=== PATIENT | female | born 1960 | race Caucasian/White ===

== ENCOUNTER 2024-06-13 18:28 | Emergency (ER) | payer OTHER, BC, SELFPAY ==
[2024-06-13 18:34] VITALS: BP 170/74; PULSE 79; RESP 20; TEMP 36.1; O2SAT 100; BMI 34.4
== END 2024-06-13 19:59 | disposition left against medical advice (07) ==
DX: Z53.21 Procedure and treatment not carried out due to patient leaving prior to being seen by health care provider (principal)

== ENCOUNTER 2024-12-30 09:02 | Outpatient (CLI) | payer BC, SELFPAY ==
--- NOTE | 2024-12-30 09:15 | CRLHL7_ITS ---
For Patients: As a result of the Century Cures Act, medical imaging exams and procedure reports are released immediately into your electronic medical record. You may view this report before your referring provider. If you have questions, please contact your health care provider. INDICATION: Dorsalgia, eval gallbladder and kidney COMPARISON: none TECHNIQUE: Real time villegas scale imaging and color Doppler analysis was performed of the right upper quadrant. FINDINGS: The patient`s liver is of normal size and has diffusely increased echogenicity. The liver measures 14.1 cm. Simple right hepatic cysts are noted measuring up to 1.6 x 1.3 x 1.5 cm. There is a normal appearance of the hepatic IVC and proximal abdominal aorta. There is no evidence of ascites. The gallbladder is of normal size and there is no evidence of intraluminal stones or sludge. The gallbladder wall measures 2.1 mm in thickness. The common bile duct is of normal size and measures 3.9 mm in diameter at the level of the boni hepatis. The pancreas appears normal. There is no evidence of a stone or hydronephrosis within the right kidney. The right kidney measures 11.0 cm in length. IMPRESSION: Moderate diffuse hepatic steatosis. Incidental intrahepatic cysts. Normal gallbladder and right kidney. Dictated by Salvador German MD @ 12/30/2024 10:12:09 AM (Electronically Signed)
== END 2024-12-30 09:03 | disposition home or self-care (01) ==
LOC: US 09:04
PROVIDERS: PCP Student in an Organized Health Care Education/Training Program; Visit Provider Family Medicine
DX: M54.9 Dorsalgia, unspecified (principal); K76.0 Fatty (change of) liver, not elsewhere classified
CPT/HCPCS: 76705

== ENCOUNTER 2025-01-05 14:58 | Emergency (ER) | payer BC, SELFPAY ==
[2025-01-05 15:13] VITALS: BP 157/84; PULSE 78; RESP 16; TEMP 36.6; O2SAT 100; BMI 35.5
--- NOTE | 2025-01-05 17:36 | CRLHL7_ITS ---
For Patients: As a result of the Century Cures Act, medical imaging exams and procedure reports are released immediately into your electronic medical record. You may view this report before your referring provider. If you have questions, please contact your health care provider. INDICATION: Right flank pain. TECHNIQUE: CT abdomen and pelvis without contrast. COMPARISON: None. FINDINGS: Limited evaluation of the intra-abdominal solid organs without IV contrast. Lower chest: Unremarkable. Liver: Multiple hypodensities in the liver likely cysts. No suspicious hepatic lesions. Gallbladder and bile ducts: Gallbladder is decompressed. No radiopaque gallstones. No intra or extrahepatic biliary ductal dilatation. Pancreas: Unremarkable. No mass or inflammation. Spleen: Normal in size. No masses. Adrenal glands: Normal in size. No nodules. Kidneys: No renal stones. No hydronephrosis. GI tract: No bowel obstruction. Average colonic stool volume. Normal appendix. Vasculature: Abdominal aorta is normal in caliber. Lymph nodes: No lymphadenopathy. Peritoneum/Abdominal Wall: Unremarkable. No sign of mass or infiltration. No free air or significant free fluid. Pelvis: Bladder is decompressed. Uterus is unremarkable. Bones: Unremarkable for age. IMPRESSION: No acute intra-abdominal process identified. No renal stones. No hydronephrosis. Appendix is within normal limits. Please note that all CT scans at this facility use dose modulation, iterative reconstruction, and/or weight-based dosing when appropriate to reduce radiation dose to as low as reasonably achievable. Dictated by Jena Duarte MD @ 01/05/2025 6:49:41 PM (Electronically Signed)
--- NOTE | 2025-01-05 17:55 | ED.BACK ---
HPI - Back Pain/Injury General Date Seen: 01/05/25 Chief Complaint: Back Injury/Pain Stated Complaint: severe muscle spasms in mid back on R side Time Seen by Provider: 01/05/25 17:29 Source: patient Mode of arrival: ambulatory Limitations: no limitations History of Present Illness HPI Narrative: patient is a 64-year-old female presenting to the emergency department for right-sided back pain. She states the pain has been going on for the past couple months but was acutely worse today. She has been seen the spine clinic and has had imaging done. She last saw the clinic 1 week ago and at that time Thursday thought this could possibly be gallbladder related so ultrasound was done. The ultrasound showed no acute concerning findings. he has did show some diffuse hepatic steatosis. . Also has a recent lumbar x-ray from yesterday 1 month ago showing disk and facette degeneration. Patient is post follow-up with Spine Clinic again after an MRI but has been unable to get 1 scheduled yet. She Describes it as a sharp stabbing sensation in her right back that does not radiate. states this last been this pain for couple months ago when the symptoms 1st started. Pain does not radiate down the leg. Denies fevers, chills, abdominal pain, chest pain, shortness of breath, urinary retention, incontinence, saddle anesthesia. Has not noticed any dysuria. No other concerns noted. Related Data Home Medications ?Medication ?Instructions ?Recorded ?Confirmed hydrochlorothiazide 25 mg tablet 25 mg PO DAILY 06/13/24 01/05/25 sertraline 100 mg tablet 100 mg PO QAM 06/13/24 01/05/25 pramipexole 0.25 mg tablet mg PO 06/16/24 12/29/24 tirzepatide 7.5 mg/0.5 mL 7.5 mg subcut 12/29/24 12/29/24 subcutaneous pen injector (Trang) Previous Rx's ?Medication ?Instructions ?Recorded cyclobenzaprine 10 mg tablet 10 mg PO TID PRN muscle spasm #20 12/08/24 tabs tramadol 50 mg tablet 50 mg PO Q6H PRN pain #14 tabs 12/08/24 oxycodone 5 mg tablet 5 mg PO Q6H PRN pain #12 tabs 01/05/25 Allergies Allergy/AdvReac Type Severity Reaction Status Date / Time lisinopril Allergy Mild Verified 01/05/25 15:12 Review of Systems Status of ROS: Reports: 10 or more systems reviewed and unremarkable except as noted in History and below [facility] Medical History History of endometrial biopsy ?Z92.89 - Personal history of other medical treatment (ICD-10) Plantar fascial fibromatosis ?M72.2 - Plantar fascial fibromatosis (ICD-10) Obesity (BMI 30-39.9) ?E66.9 - Obesity, unspecified (ICD-10) Irritable bowel syndrome (IBS) ?K58.9 - Irritable bowel syndrome, unspecified (ICD-10) H/O sciatica ?Z86.69 - Personal history of other diseases of the nervous system and sense organs (ICD-10) Arthritis ?M19.90 - Unspecified osteoarthritis, unspecified site (ICD-10) Acid reflux ?K21.9 - Gastro-esophageal reflux disease without esophagitis (ICD-10) Nonallopathic lesion of thoracic region, not elsewhere classified ?M99.9 - Biomechanical lesion, unspecified (ICD-10) Spasm of muscle ?M62.838 - Other muscle spasm (ICD-10) Headache ?R51.9 - Headache, unspecified (ICD-10) Nonallopathic lesion of cervical region, not elsewhere classified ?M99.81 - Other biomechanical lesions of cervical region (ICD-10) Disorders of magnesium metabolism ?E83.40 - Disorders of magnesium metabolism, unspecified (ICD-10) Major depressive disorder, single episode, unspecified ?F32.9 - Major depressive disorder, single episode, unspecified (ICD-10) Bronchitis ?J40 - Bronchitis, not specified as acute or chronic (ICD-10) Plantar fasciitis ?M72.2 - Plantar fascial fibromatosis (ICD-10) Iron deficiency ?E61.1 - Iron deficiency (ICD-10) Left-sided chest pain ?R07.9 - Chest pain, unspecified (ICD-10) Anemia ?D64.9 - Anemia, unspecified (ICD-10) COVID-19 ?U07.1 - COVID-19 (ICD-10) Vaginal bleeding ?N93.9 - Abnormal uterine and vaginal bleeding, unspecified (ICD-10) Pulmonary nodule ?R91.1 - Solitary pulmonary nodule (ICD-10) Restless legs syndrome (RLS) ?G25.81 - Restless legs syndrome (ICD-10) Primary osteoarthritis of right shoulder ?M19.011 - Primary osteoarthritis, right shoulder (ICD-10) Chronic left shoulder pain ?M25.512 - Pain in left shoulder (ICD-10) ?G89.29 - Other chronic pain (ICD-10) DDD (degenerative disc disease), lumbar ?M51.369 - Other intervertebral disc degeneration, lumbar region without mention of lumbar back pain or lower extremity pain (ICD-10) Sciatica of right side ?M54.31 - Sciatica, right side (ICD-10) Type 2 diabetes mellitus without complication, without long-term current use of insulin ?E11.9 - Type 2 diabetes mellitus without complications (ICD-10) Vitamin D deficiency ?E55.9 - Vitamin D deficiency, unspecified (ICD-10) Hyperlipidemia with target LDL less than 130 ?E78.5 - Hyperlipidemia, unspecified (ICD-10) Prediabetes ?R73.03 - Prediabetes (ICD-10) Heart murmur ?R01.1 - Cardiac murmur, unspecified (ICD-10) Essential hypertension, benign ?I10 - Essential (primary) hypertension (ICD-10) Surgical History History of hand surgery ?Z98.890 - Other specified postprocedural states (ICD-10) Status post trigger finger release ?Z98.890 - Other specified postprocedural states (ICD-10) History of tonsillectomy ?Z90.89 - Acquired absence of other organs (ICD-10) History of right shoulder replacement ?Z96.611 - Presence of right artificial shoulder joint (ICD-10) H/O toe surgery ?Z98.890 - Other specified postprocedural states (ICD-10) Social History Smoking Status: Never smoker Do you use any of these nicotine containing products: None Second hand tobacco smoke exposure: No Exam Narrative: Exam Narrative: Const: Well-nourished, Well-developed, in Moderate distress Eyes: PERRL, no conjunctival injection, and symmetrical lids HENT: Atraumatic external nose and ears. Moist mucous membranes. Neck: Symmetric, trachea midline, No thyromegaly. CVS: RRR, No murmurs or gallops. Peripheral pulses 2+ and equal in all extremities RESP: Unlabored respiratory effort. Clear to auscultation bilaterally. GI: Nontender/Nondistended, No rebound or guarding. no CVA tenderness MSK:Extremities w/o deformity, Normal Active ROM Skin: Warm, Dry. No rashes or lesions. Neuro: Normal Muscle tone, No focal neurological deficits. Psych: Awake, Alert, & Oriented x3. Appropriate mood and affect. Const: Vital Signs, click to edit/add: Vital Signs - 24 hr 01/05/25 15:13 Temperature 97.9 F Pulse Rate [Pulse Oximeter] 78 Respiratory Rate 16 Blood Pressure [Ri ght Upper Arm] 157/84 H Pulse Oximetry 100 Oxygen Delivery Me thod Room Air Course Vital Signs Vital signs: Initial Vital Signs Temperature 97.9 F 01/05/25 15:13 Temperature Source Temporal Artery Scan 01/05/25 15:13 Pulse Rate 78 01/05/25 15:13 Respiratory Rate 16 01/05/25 15:13 Blood Pressure 157/84 H 01/05/25 15:13 Blood Pressure Mean 108 H 01/05/25 15:13 Pulse Oximetry 100 01/05/25 15:13 Oxygen Delivery Method Room Air 01/05/25 15:13 Vital Signs Temperature 97.9 F 01/05/25 15:13 Pulse Rate 78 01/05/25 15:13 Respiratory Rate 16 01/05/25 15:13 Blood Pressure 157/84 H 01/05/25 15:13 Pulse Oximetry 100 01/05/25 15:13 Oxygen Delivery Method Room Air 01/05/25 15:13 Temperature 97.9 F 01/05/25 15:13 Pulse Rate 78 01/05/25 15:13 Respiratory Rate 16 01/05/25 15:13 Blood Pressure 157/84 H 01/05/25 15:13 Pulse Oximetry 100 01/05/25 15:13 Oxygen Delivery Method Room Air 01/05/25 15:13 Medications Administered Medications: Discontinued Medications Generic Name Dose Route Start Last Admin Trade Name Freq PRN Reason Stop Dose Admin Oxycodone HCl 5 mg 01/05/25 17:36 01/05/25 18:00 Oxycodone 5 Mg Tablet PO 01/05/25 17:37 5 mg ONCE ONE Administration MDM - Back Pain/Injury MDM Narrative Medical decision making narrative: Patient is a 64-year-old female presenting for right-sided back pain. This pain is most likely musculoskeletal in nature expression concerning degenerative joint and disc disease but I do have some concern for a kidney stones I will order a CT scan for better evaluation. Oxycodone will be given for pain. She is having no red flag symptoms for cauda equina. No other concerns noted patient is feeling better after the oxycodone. CT scan reviewed by myself the radiologist shows no acute concerning abnormalities. This is most likely musculoskeletal in nature and she will need to follow-up outpatient. She is agreeable to this plan. I will give her couple days of oxycodone to help get her through this episode. Imaging Data CT scan abdomen and pelvis: Attestation: I have reviewed the pertinent imaging results. Radiologist's impression: No acute intra-abdominal process identified. No renal stones. No hydronephrosis. Appendix is within normal limits. Please note that all CT scans at this facility use dose modulation, iterative reconstruction, and/or weight-based dosing when appropriate to reduce radiation dose to as low as reasonably achievable. Dictated by Jena Duarte MD @ 01/05/2025 6:49:41 PM Discharge Plan Discharge Clinical Impression: Lumbar radiculopathy Patient Disposition: Home, Self-Care Condition: Improved Instructions: Acute Low Back Pain (ED) Additional Instructions: take your previously prescribed pain medications but If they are not helping you can try the oxycodone. Return to emergency department for new or worsening symptoms. Make sure to get your MRI scheduled. Prescriptions: New oxycodone 5 mg tablet 5 mg PO Q6H PRN (Reason: pain) Qty: 12 0RF No Action cyclobenzaprine 10 mg tablet 10 mg PO TID PRN (Reason: muscle spasm) Qty: 20 0RF tramadol 50 mg tablet 50 mg PO Q6H PRN (Reason: pain) Qty: 14 0RF Mounjaro 7.5 mg/0.5 mL pen injector 7.5 mg subcut pramipexole 0.25 mg tablet PO sertraline 100 mg tablet 100 mg PO QAM hydrochlorothiazide 25 mg tablet 25 mg PO DAILY Follow Up/Referrals: Malecha,Lacie M, PA-C [Primary Care Provider] - Stand Alone Forms: [employer] Info Instructions
[2025-01-05] MEDS: OXYCODONE 5 MG TABLET PO (18:00)
--- OUTSIDE RECORDS SUMMARY | 2025-01-05 20:54 | XMS_ITS | Clinical Summary ---
Author Organization [facility] Address [address] [place] [id number] Care Team Providers Care Bottom Cager Name Role Phone Yobani Lacie BANUELOS Primary Care Provider [phone] Unavailable [phone] Jaimie Dent Unavailable Allergies Active Allergy Reactions Criticality Noted Date Comments Lisinopril Cough Low 07/16/2020 Medications hydroCHLOROthiazide 25 mg tabletIndications:Essen tial hypertension, benign Take 1 Tablet (25 mg) by mouth once daily. 90 Tablet 025 Active pramipexole (MIRAPEX) 0.25 mg tabletIndications:Restl ess legs syndrome (RLS) Take 1 Tablet (0.25 mg) by mouth two times daily. 180 Tablet 025 Active sertraline (ZOLOFT) 100 mg tabletIndications:Depre ssion, major, single episode, moderate (HC) Take 1 Tablet (100 mg) by mouth once daily in the morning. 90 Tablet 025 Active triamcinolone (ARISTOCORT; KENALOG) 0.1 % creamIndications:Dermat itis Apply topically to affected area(s) two times daily. Use for up to 2 weeks. 80 g 025 Active atorvastatin (LIPITOR) 10 mg tabletIndications:Pure hypercholesterolemia Take 1 Tablet (10 mg) by mouth at bedtime. 90 Tablet 025 Active tirzepatide (Mounjaro) 5 mg/0.5 mL penIndications:Type 2 diabetes mellitus with hyperglycemia, without long-term current use of insulin (HC) Inject 5 mg subcutaneous once weekly. 2 mL 025 Active Active Problems Problem Noted Date Diagnosed Date Cervical high risk HPV (human papillomavirus) te st positive 10/23/2023 Overview (10/23/2023): 10/16/2023 UNS/HPV+, HPV 16/18 Negative Plan: Repeat Pap no later than 4 months Type 2 diabetes mellitus wit hout complication, without long-term current use of insulin 10/16/2023 Pulmonary nodule 04/08/2021 Overview (04/08/2021): CT scan 04/08/2021 6 mm left upper lobe Recommendations: repeat 1 year (letter created) Heart murmur 04/26/2020 Overview (04/26/2020): Echo 04/26/2020-normal, ejection fraction 60-65%, sclerotic aortic valve without regurgitation or stenosis Primary osteoarthritis of right shoulder 019 Overview (07/16/2020): S/p total shoulder replacement 05/2019 Depression, major, single episode, moderate 01/29 Chronic left shoulder pain 09/02/2016 Overview (01/18/2019): Seen in [facility] s/p injection with improvement. Essential hypertension, benign 08/19/2016 Vaginal bleeding 11/17/2013 Overview (11/29/2013): Postmenopausal: US 10/2013 Small, likely dystrophic 2 mm calcification at the myometrial/endometrial interface without evidence for associated lesion of either. Small amount of blood within the endometrium. The uterus is otherwise unremarkable. Endometrial biopsy: negative polyp noted Recommendations: per Obstetrics and Gynecology return if bleeding recurs. DDD (degenerative disc disease), lumbar 10/27/19 14 Overview (06/09/2022): [facility] center rehabilitation: medX- significant improvement after physical therapy Current medications:gabapentin Vitamin D deficiency 05/22/2013 Overview (09/04/2016): recheck values on no current vit D recommendatins to follow based on results. 05/13 27.3 09/04/2016 37.4 Recommendations: 2000 daily. Sciatica of right side 09/17/2012 Overview (11/24/2017): [facility] Orth[facility]ics: 09/12- given steroid dose pac with physical therapy recommended. Chiropractic for this. 11/07/2013 completed Med[facility]. 11/24/2017 no programs currently. Current medications: none. Special screening for malignant neoplasms, colon 02/13/2010 Overview (07/16/2020): Colonoscopy 01/2010- normal repeat 10 years I FOBT 05/11/2020-negative (preferred) Restless legs syndrome (RLS) 05/31/2007 Prediabetes Overview (02/12/2021): Labs. 11/24/2017 Glucose: range 102-115 118 HgA1c: 6.1- 6.3 3 01/18/2019 6.7 ; 04/16/2020 7.1 07/16/2020Recommendations: 04/16/2020 plans for weight loss program and recheck in 3 months. Hyperlipidemia with target LDL less than 130 Resolved Problems Problem Noted Date Diagnosed Date Resolved Date Anemia 05/31/2019 06/09/2022 Overview (05/31/2019): Noted at the time of her preop 05/31/2019 at 11.3. Normal in January 2019 but low 2 years prior After surgery consider further work-up. Left sided chest pain 08/20/20162017 Overview (08/31/2016): EKG normal; admission negative; 08/15 CT angiogram zero calcium score negative findings ? Small PFO; echocardiogram EF 60%; left atrial enlargement. Iron deficiency 09/17/2008 05/17/2013 Overview (05/17/2013): HEMOGLOBIN 08/17/2012 12.4 Ferritin 65.9 Needs EGD and colonoscopy- completed there all of which were normal. Plantar fasciitis 05/26/2008 06/09/2022 Overview (05/17/2013): Current medications: none 05/17/2013 controlled with exercise. Pain in limb 05/26/2008 05/10/2012 Overview (05/10/2012): managable at this time. ? Restless legs Current medications: mirapex Major depressive disorder, s francisca episode, unspecified 12/22/2007 05/10/2012 Overview (05/10/2012): PHQ-9 normalize 12/22/2007 treatment recommended 6-12 months quit celexa 12/2008; 05/10/2012 doing well. Current medications: none Disorders of magnesium metabolism 04/26/2007 05/17/2013 Overview (05/17/2013): 08/11 2.0 Magnesium 05/17/2013 no current treatment. Stopped her supplements. Nonallopathic lesion of cerv ical region, not elsewhere classified 07/09/2005 06/09/2007 Headache(784.0) 07/09/2005 06/09/2007 Nonallopathic lesion of thor acic region, not elsewhere classified 07/09/2005 11/07/2013 Overview (05/17/2013): 05/17/2013 sciatica right side noted. Stretching primarily and chiropractic occassional symptoms: home stretching. Current medications: none. Spasm of muscle 07/09/2005 06/09/2007 Encounters Date Type Department Care Team Description 01/04/2025 Refill [facility] [address] [place] [address] Lacie Hilton PA Refill Request (Trang) 01/02/2025 9:20 AM CDT Telemedicine [facility] [address] [place] [address] Melissa Batres, ASSISTANT CHIEF ENGINEER URI 01/02/2025 Travel 12/30/2024 Orders Only [facility] Scanner 1 scan: (1-Ord) [facility], 12/30/2024 11/12/2024 Refill [facility] [address] [place] [address] Lacie Hilton PA Refill Request (Mounjaro) 11/09/2024 Orders Only [facility] Scanner 1 scan: (1-Ord) [facility], 11/09/2024 10/29/2024 Travel 10/26/2024 Telephone [facility] [address] [place] [address] Lacie Hilton PA Prior Authorization (tirzepatide (Mounjaro) 2.5 mg/0.5 mL pen - APPROVED 09/26/2024 - 10/26/2025) 10/19/2024 9:30 AM TIME STUDY ENGINEER Office Visit [facility] [address] [place] [address] Lacie Hilton PA Medicare WELCOME Visit 10/19/2024 Travel 10/17/2024 Travel 10/09/2024 Refill [facility] [address] [place] [address] Lacie Hilton PA Refill Request (Sertraline) from Last 3 Months Immunizations Immunization Administration Dates Next Due COVID-19 vaccine (Moderna 10 0mcg/0.5mL) PF, MDV 07/11/2021,12/12/2020,2020 Hepatitis A (Adult) 03/14/2013,08/17/2012 Hepatitis B (Adult) 03/14/2013,09/24/2012,2011 Influenza Virus, Unspecified 06/12/2009 Influenza, High-dose Inactivated 08/02/2024 Influenza, IIV4 05/14/2023,06/10/2021,08/18/2017 Influenza, Inactivated IIV3 (Age 65+ Years) Preserv Free 08/02/2024 Pneumococcal Conj 20-valent (Prevnar 20) 024 Td (Age >=7 Years) 07/16/2020,08/31/1998 Tdap 01/21/2010 Tuberculin (PPD) 09/02/2016 Typhoid (oral) 09/02/2012 Zoster (Shingrix-RZV, recombinant) 09/21/2021, Family History Medical History Relation Name Comments Alcoholism Brother 1 humberto Stroke Brother 1 humberto Alcohol/Drug Brother 2 farida Stroke Brother 2 farida Alcoholism Father Lung cancer Father Cancer Maternal Grandfather lung COPD Mother Heart Disease Paternal Grandfather AL 80' s Cervical cancer Sister 1 michael cervical Diabetes Sister 2 eva Good Health Sister 2 eva Hypertension Sister 2 eva Obesity Sister 2 eva Cancer-breast No Family History Cancer-colon No Family History Cancer-ovarian No Family History Cancer-prostate No Family History Relation Name Status Comments Brother 1 humberto Alive Brother 2 farida Alive Father Maternal Grandfather Mother Paternal Grandfather Sister 1 michael Alive Sister 2 eva Alive Social History Tobacco Use Types Packs/Day Years Used Date Smoking Tobacco: Never Smokeless Tobacco: Never Tobacco Cessation:Counseling Given: Yes Alcohol Use Standard Drinks/Week Comments Not Currently 0 (1 standard drink = 0.6 oz pur e alcohol) rarely Humiliation, Afraid, Rape, and Kick questionnair e Answer Date Recorded Fear of Current or Ex-Partner No Emotionally Abused No 05/31/2019 Physically Abused No 05/31/2019 Sexually Abused No 05/31/2019 PHQ-2 Answer Date Recorded PHQ-2 TOTAL SCORE 0 10/19/2024 [facility] - Occupational Stress Questionnaire Answer Date Recorded Do you feel stress - tense, restless, nervous, or anxious, or unable to sleep at night because your mind is troubled all the time - these days? Very much 07/16/2020 Exercise Vital Sign Answer Date Recorde d Days of Exercise per Week 0 days 2018 Minutes of Exercise per Session Not on file 01/18/2019 Social Connections Answer Date Recorded Do you often feel lonely or isolated from those around you? 0 09/20/2024 Financial Resource Strain Answer Date R ecorded Difficulty of Paying Living Expenses 3 09/20/2024 Difficulty of Paying Living Expenses Not on file 09/20/2024 Food Insecurity Answer Date Recorded Do you worry your food will run out before you are able to buy more? 1 09/20/2024 Transportation Needs Answer Date Record ed Does lack of transportation keep you from medica l appointments? 1 09/20/2024 Does lack of transportation keep you from work, meetings or getting things that you need? 1 09/20/2024 Housing Stability Answer Date Recorded What is your housing situation today? 1 09/20/2024 Utilities Answer Date Recorded Do you have trouble paying f or utilities (for example, heat, electricity, water, phone)? 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 Not on file Not on file Not on file Obstetrics History Para Term AB IAB SAB Ectopic Multiple Livin g Live Births 2 2 2 Date Outcome GA Total Labor Labor/2nd/3rd Weight Sex Type Anes PTL Sherine A1 A5 Name Clin Para Para Last Filed Vital Signs Vital Sign Reading Time Taken Comments Blood Pressure 122/76 10/19/2024 9:18 AM TIME STUDY ENGINEER Pulse 62 10/19/2024 9:18 AM TIME STUDY ENGINEER Temperature 36.8 C (98.3 F) 05/31/2021 8:22 AM CDT Respiratory Rate 16 07/06/2024 3:06 PM TIME STUDY ENGINEER Oxygen Saturation 99% 10/19/2024 9:18 AM TIME STUDY ENGINEER Inhaled Oxygen Concentration - - Weight 98.9 kg (218 lb) 10/19/2024 9:18 AM TIME STUDY ENGINEER Height 165.1 cm (5' 5) 10/19/2024 9:18 AM TIME STUDY ENGINEER Body Mass Index 36.28 10/19/2024 9:18 AM TIME STUDY ENGINEER Plan of Treatment Upcoming Encounters Date Type Department Care Team (Late st Contact Info) Description 01/18/2025 8:40 AM CDT Ancillary Procedure [facility] [address] [place] [address] 01/18/2025 9:00 AM CDT Ancillary Procedure [facility] [address] [place] [address] 01/18/2025 9:30 AM CDT Office Visit [facility] [address] [place] [address] Lacie Hilton PA [address] [place] [address] Health Maintenance Due Date Last Done Comments Mammogram for age 45-75 02/14/2023 02/15/20, 11/24/2017, 09/30/2016, Additional history exists DEXA/DXA scan for age 65+ 11/14/2023 COVID-19 vaccine series ( season) 2024 07/11/2021, 12/12/2020, 2020 BMI (ht and wt on same day) for age 18+ 10/19/2025 10/19/2024, 02/24/2024, 10/16/2023, Additional history exists Medicare Wellness for age 65+ 10/20/2025 10/19/2024 Depression screening for age 12+ 01/18/2026 01/18/2025, 10/19/2024, 10/09/2024, Additional history exists Fecal testing sDNA-FIT ([place] guard) for age 45-75 10/29/2026 10/30/2023 Lipids for age 45-75 10/19/2029 10/19/2024, 10/16/2023, 06/09/2022, Additional history exists Tetanus booster 07/16/2030 07/16/2020, 12/30, 01/21/2010, Additional history exists RSV vaccine for adults or (1 - 1-dose 75+ series) 2033 Tdap Completed 01/21/2010 Hepatitis C screening for ag e 18-79 Completed 11/07/2013 Zoster (shingles) series for age 50+ Completed 09/21/2021, 03/11/2021 Influenza Vaccine Completed 08/02/2024, , 05/14/2023, Additional history exists Pneumococcal series for age 50+ Completed Medical Devices Implanted Type Area Care Clinician Device Identifier Shelf Expiration Date Model / Serial / Lot Cmnt Bone 40g Simplex P Non Atb Mv - [id number] Implanted:Qty: 1 on 06/16/2019 by Won Winslow MD at [facility] Right: Shoulder [employer] 05/30/2021 [id number] 0# / / [id number] Glenoid Szmed 35mm Aeq Perform - [id number] Implanted:Qty: 1 on 06/16/2019 by Won Winslow MD at [facility] Right: Shoulder [employer] 04/09/2023 [id number]# / [id number] / Head Hum [id number] Aequalis Hi Off - [id number] Implanted:Qty: 1 on 06/16/2019 by Won Winslow MD at [facility] Right: Shoulder [employer] 10/07/2023 [id number]# / [id number] / Stem Hum Sz4b Ascend Flex Std - [id number] Implanted:Qty: 1 on 06/16/2019 by Won Winslow MD at [facility] Right: Shoulder [employer] 04/20/2024 [id number]# / [id number] / Procedures Procedure Name Priority Date/Time Associated Diagnosis Comments SCAN-ULTRASOUND REPORT 12/30/2024 12:00 AM CDT SCAN-EYE EXAM 11/09/2024 12:00 AM CDT LIPID PANEL W REFLEX MEASURED LDL Routine 10/19/2024 10:11 AM TIME STUDY ENGINEER Hyperlipidemia with target LDL less than 130 HEMOGLOBIN A1C Routine 10/19/2024 10:11 AM TIME STUDY ENGINEER Type 2 diabetes mellitus with hyperglycemia, without long-term current use of insulin (HC) BASIC METABOLIC PANEL Routine 10/19/2024 10:11 AM TIME STUDY ENGINEER Essential hypertension, benign SDNA-FIT EXTERNAL (COLOGUARD) Routine 10/30/2023 9:30 AM TIME STUDY ENGINEER Screening for colon cancer XR MAMMO BILAT SCREENING Routine 02/14/2021 11:39 AM CDT Visit for screening mammogram ANTI HCV Routine 11/07/2013 2:41 PM CDT Need for hepatitis C screening test from Last 3 Months or Most Recently Relevant to Health Maintenance Results * SCAN-ULTRASOUND REPORT (12/30/2024 12:00 AM CDT) Anatomical Region Laterality Modality Other us Scanner OTHER Final Result * SCAN-EYE EXAM (11/09/2024 12:00 AM CDT) us Scanner OTHER Final Result * (ABNORMAL) HEMOGLOBIN A1C (10/19/2024 10:11 AM TIME STUDY ENGINEER) HEMOGLOBIN A1C 8.5(H) <5.7 % of total Hgb [facility] Comment: For someone without known diabetes, a hemoglobin A1c value of 6.5% or greater indicates that they may have diabetes and this should be confirmed with a follow-up test. For someone with known diabetes, a value <7% indicates that their diabetes is well controlled and a value greater than or equal to 7% indicates suboptimal control. A1c targets should be individualized based on duration of diabetes, age, comorbid conditions, and other considerations. Currently, no consensus exists regarding use of hemoglobin A1c for diagnosis of diabetes for children. Blood BLOOD SPECIMEN / Unknown 10/19/2024 10:11 AM TIME STUDY ENGINEER 10/19/2024 10:11 AM TIME STUDY ENGINEER us Lacie BANUELOS CHEMISTRY Final Res ult [facility] [address] [place] [address], [facility] [address] [facility] [place] [address] * (ABNORMAL) LIPID PANEL W REFLEX MEASURED LDL (10/19/2024 10:11 AM TIME STUDY ENGINEER) CHOLESTEROL, TOTAL 226(H) <200 mg/dL [facility] HDL CHOLESTEROL 55 > OR = 50 mg/dL [facility] TRIGLYCERIDES 138 <150 mg/dL [facility] LDL-CHOLESTEROL 144(H) mg/dL (calc) [facility] Comment: Reference range: <100 Desirable range <100 mg/dL for primary prevention; <70 mg/dL for patients with CHD or diabetic patients with > or = 2 CHD risk factors. LDL-C is now calculated using the Herson calculation, which is a validated novel method providing better accuracy than the Friedewald equation in the estimation of LDL-C. Kevan SS et al. TATA. 2013;310(19): 3883-7085 (http://education.Collected Inc./faq/WSF426) CHOL/HDLC RATIO 4.1 <5.0 (calc) [facility] NON HDL CHOLESTEROL 171(H) <130 mg/dL (calc) [facility] Comment: For patients with diabetes plus 1 major ASCVD risk factor, treating to a non-HDL-C goal of <100 mg/dL (LDL-C of <70 mg/dL) is considered a therapeutic option. Blood BLOOD SPECIMEN / Unknown 10/19/2024 10:11 AM TIME STUDY ENGINEER 10/19/2024 10:11 AM TIME STUDY ENGINEER us Lacie BANEULOS CHEMISTRY Final Res ult [facility] [address] [place] [address], [facility] [address] * (ABNORMAL) BASIC METABOLIC PANEL (10/19/2024 10:11 AM TIME STUDY ENGINEER) Pathologist [facility] GLUCOSE 200(H) 65 - 99 mg/dL [facility] Comment: Fasting reference interval For someone without known diabetes, a glucose value >125 mg/dL indicates that they may have diabetes and this should be confirmed with a follow-up test. UREA NITROGEN (BUN) 13 7 - 25 mg/dL [facility] CREATININE 0.54 0.50 - 1.05 mg/dL [facility] EGFR 102 > OR = 60 mL/min/1. 73m2 [facility] BUN/CREATININE RATIO SEE NOTE: 6 - 22 (calc) [facility] Comment: Not Reported: BUN and Creatinine are within reference range. SODIUM 139 135 - 146 mmol/L [facility] POTASSIUM 3.8 3.5 - 5.3 mmol/L [facility] CHLORIDE 100 98 - 110 mmol/L [facility] CARBON DIOXIDE 30 20 - 32 mmol/L [facility] ELECTROLYTE BALANCE 9 7 - 17 mmol/L (calc) [facility] CALCIUM 9.3 8.6 - 10.4 mg/dL [facility] Blood BLOOD SPECIMEN / Unknown 10/19/2024 10:11 AM TIME STUDY ENGINEER 10/19/2024 10:11 AM TIME STUDY ENGINEER us Lacie BANUELOS CHEMISTRY Final Res ult [facility] [address] [place] [address], [facility] [address] [place] [address] * SDNA-FIT EXTERNAL (COLOGUARD) (10/30/2023 9:30 AM TIME STUDY ENGINEER) NONINV COLON CA DNA+OCC BLD SCRN STL-IMP Negative Negative 11/09/2023 5:11 PM CDT [facility] (CLIA #:[id number]) Comment: NEGATIVE TEST RESULT. A negative Cologuard result indicates a low likelihood that a colorectal cancer (CRC) or advanced adenoma (adenomatous polyps with more advanced pre-malignant features) is present. The chance that a person with a negative Cologuard test has a colorectal cancer is less than 1 in 1500 (negative predictive value >99.9%) or has an advanced adenoma is less than 5.3% (negative predictive value 94.7%). These data are based on a prospective cross-sectional study of 10,000 individuals at average risk for colorectal cancer who were screened with both Cologuard and colonoscopy. (Rita Boss, N Engl J Med 2014;370(14):3525-2849) The normal value (reference range) for this assay is negative. COLOGUARD RE-SCREENING RECOMMENDATION: Periodic colorectal cancer screening is an important part of preventive healthcare for asymptomatic individuals at average risk for colorectal cancer. Following a negative Cologuard result, the [place] [employer] and U.S. Multi-Society Task Force screening guidelines recommend a Cologuard re-screening interval of 3 years. References: [place] [employer] Guideline for Colorectal Cancer Screening: https://www.cancer.org/cancer/suzbt-vlzdgv-yvvaoe/lhpjbcsuo-mwalpdhdv-zoauosv/ac s-rec ommendations.html.; Patrick DK, Bernadette VIVAS, Pk SamK, Colorectal Cancer Screening: Recommendations for Physicians and Patients from the U.S. Multi-Society Task Force on Colorectal Cancer Screening , Am J Gastroenterology 2017; 112:1699-2003. TEST DESCRIPTION: Composite algorithmic analysis of stool DNA-biomarkers with hemoglobin immunoassay. Quantitative values of individual biomarkers are not reportable and are not associated with individual biomarker result reference ranges. Cologuard is intended for colorectal cancer screening of adults of either sex, 45 years or older, who are at average-risk for colorectal cancer (CRC). Cologuard has been approved for use by the U.S. FDA. The performance of Cologuard was established in a cross sectional study of average-risk adults aged 50-84. Cologuard performance in patients ages 45 to 49 years was estimated by sub-group analysis of near-age groups. Colonoscopies performed for a positive result may find as the most clinically significant lesion: colorectal cancer [4.0%], advanced adenoma (including sessile serrated polyps greater than or equal to 1cm diameter) [20%] or non- advanced adenoma [31%]; or no colorectal neoplasia [45%]. These estimates are derived from a prospective cross-sectional screening study of 10,000 individuals at average risk for colorectal cancer who were screened with both Cologuard and colonoscopy. (Rita Boss, N Engl J Med 2014;370(14):7461-1239.) Cologuard may produce a false negative or false positive result (no colorectal cancer or precancerous polyp present at colonoscopy follow up). A negative Cologuard test result does not guarantee the absence of CRC or advanced adenoma (pre-cancer). The current Cologuard screening interval is every 3 years. ([place] [employer] and U.S. Multi-Society Task Force). Cologuard performance data in a 10,000 patient pivotal study using colonoscopy as the reference method can be accessed at the following location: www.Realie.Axcient/results. Additional description of the Cologuard test process, warnings and precautions can be found at www.cologAcunurd.com. Stool specimen (specimen) (Rectum) 10/30/2023 9:30 AM TIME STUDY ENGINEER 11/02/2023 9:53 AM TIME STUDY ENGINEER us Lacie BANUELOS URINE Final Res ult [facility] (CLIA #:[id number]) [address] [place] [address], * XR MAMMO BILAT SCREENING (02/14/2021 11:39 AM CDT) Anatomical Region Laterality Modality BREASTS, Breast Left, Breast Right Bilateral Mammography Impressions 02/14/2021 2:55 PM CDT There is no radiographic evidence for malignancy. Recommend annual mammograms. MAMMOGRAM ASSESSMENT: ACR 1 Negative PATIENTS: You will also receive a letter with your examination results in an easy to read format. If you have questions about your results, please contact your referring provider. Narrative 02/14/2021 2:55 PM CDT XR MAMMO BILAT SCREENING [[id number]] CLINICAL HISTORY: This is an asymptomatic 60 y.o. patient. INDICATION FOR EXAM: Mammogram Screening. TECHNIQUE: CC & MLO views were obtained. This study was evaluated with the assistance of Computer-Aided Detection. COMPARISON FILM: Yes 11/24/17 [facility] 09/30/16 [facility] FINDINGS: The breasts have scattered areas of fibroglandular density. There are no dominant masses, suspicious micro calcifications or areas of architectural distortion. us Jaimie Reyes MD MAMMO Final Resu lt * ANTI HCV [04410.2] (11/07/2013 2:41 PM CDT) ANTI HCV Non-reacti ve [facility] Blood specimen (specimen) BLOOD SPECIMEN / Unknown 11/07/2013 2:41 PM CDT 11/07/2013 2:33 PM CDT us Jaimie Reyes MD SEND OUTS Final Resu lt [facility] INTERNAL ZIP [address] [place] [address] from Last 3 Months or Most Recently Relevant to Health Maintenance Insurance [facility] MEDICARE PART A HB ONLY MEDICARE PART B HB ONLY OWCP Advance Directives * Full Code (Latest Code Status on File) Date Activated Date Inactivated Comments 06/16/2019 5:56 AM 06/17/2019 2:40 PM * Full Code Date Activated Date Inactivated Comments 08/19/2016 9:41 PM 08/20/2016 5:41 PM Care Teams Bottom Cager Relationship Specialty Start Date End Date Lacie Hilton PA [address] [place] [address] PCP - General Physician [employer] 05/19/[address] [place] [address] Registered Dietitian Strip Cutter 07/03/23 Jaimie Dent PA [address] [place] [address] Physician [employer] 07/03/23 Bambi Samson Mental Health Provider 07/03/23
== END 2025-01-05 19:15 | disposition home or self-care (01) ==
PROVIDERS: Emergency Provider Student in an Organized Health Care Education/Training Program; PCP Student in an Organized Health Care Education/Training Program
DX: M54.16 Radiculopathy, lumbar region (principal)
CPT/HCPCS: 74176; 99284; A9270

== ENCOUNTER 2025-04-04 09:53 | Outpatient (CLI) | payer BC, SELFPAY | END 2025-04-04 09:54 | disposition home or self-care (01) | PROVIDERS: PCP Student in an Organized Health Care Education/Training Program | DX: R00.2 Palpitations (principal) | CPT/HCPCS: 84443; 84484 ==

== ENCOUNTER 2025-07-24 07:41 | Emergency (ER) | payer BC, SELFPAY ==
--- OUTSIDE RECORDS SUMMARY | 2010-05-08 10:38 | XMS_ITS | Continuity of Care Document ---
Author Organization [facility] Address [address] [address] [place] [address] Phone Care Team Providers Care Software Sales Executive Name Role Phone Unavailable Unavailable Unavailable Allergies, Adverse Reactions, Alerts Substance Reaction Status Criticality No Known allergies Medications Medication Instructions Dosage Effective Dates (start - stop) Status Comments FISH OIL (unknown strength) Take one capsule by mouth daily. 1200mg Not Available - Active GLUCOSAMINE (unknown strength) Take two tablets by mouth daily Not Available - Active Wal-Profen 200 mg Tab as needed - Active mhzqaok-dfelnnrxq-q inc Tab Take two tablets by mouth daily. With vitamin D - Active Vitamin D 1,000 unit Tab Take one tablet by mouth daily - Active ferrous sulfate 324 mg (65 mg Iron) Tab, Delayed Release Take one tablet by mouth two times per day - Active pramipexole 0.25 mg Tab Take one tablet by mouth two times per day - Active Procedures Procedure Date Colonoscopy Flex; Dx (sep Pro) 10 Advance Directives Directive Yes / No Effective Date File Name No Information Encounters Encounter Description Practice Location Reason(s) For Visit Diagnoses Date Provider Providers Copied on Encounter [facility], [address] [address], [place], [id number], [place] tel:[phone] [facility] No Information 0 No Information [facility], [address] [address], [place], [id number], [place] tel:[phone] [facility] Iron Deficiency Anemia 0 No Information Family History Family Member Type Diagnosis Age At Onset No Information Payers Payer name Insurance type Covered green party ID Authoriza tion(s) No Information Social History Type Description Quantity Date Captured Comments Sex Female Smoking Status No Information Chief Complaint And Reason For Visit No Information Reason For Referral Reason For Referral No Information History Of Present Illness Encounter Date Complaint History Of Prese nt Illness No Information Functional Status Date Functional Assessmen t No Information Instructions Date Instruction Additional Infor mation No Information Assessments Type Assessment Date No Information Patient Care Teams Name Effective Dates (start - stop) Status Members No Information
[2025-07-24] VITALS (7 sets, daily range): BP systolic 149–153; BP diastolic 65–83; PULSE 52–61; RESP 16–18; TEMP 35.8–36.8; O2SAT 96–97
--- OUTSIDE RECORDS SUMMARY | 2025-07-24 07:43 | XMS_ITS | Clinical Summary ---
Author Organization [facility] Address [address] [place] [id number] Care Team Providers Care School Photographs Detailer Name Role Phone Lacie Hilton Primary Care Provider [phone] Unavailable Jaimie Dent Unavailable [phone] Allergies Active Allergy Reactions Criticality Noted Date Comments Lisinopril Cough Low 07/16/2020 Medications hydroCHLOROthiaz viktoria 25 mg tabletIndication s:Essential hypertension, benign Take 1 Tablet (25 mg) by mouth once daily. 90 Tablet 3 5 Active pramipexole (MIRAPEX) 0.25 mg tabletIndication s:Restless legs syndrome (RLS) Take 1 Tablet (0.25 mg) by mouth two times daily. 180 Tablet 3 5 Active polyethylene glycol-electroly te 236-22.74-6.74 -5.86 gram suspensionIndica tions:Encounter for screening colonoscopy Drink 2 liters (half the bottle) the day before colonoscopy and 2 liters (remaining prep) 6 hours prior to colonoscopy appointment. 4000 mL 5 Active empagliflozin (JARDIANCE) 10 mg tabletIndication s:Type 2 diabetes mellitus without complication, without long-term current use of insulin (HC) Take 1 Tablet (10 mg) by mouth once daily. 90 Tablet 5 Active sertraline (ZOLOFT) 50 mg tabletIndication s:Depression, major, single episode, moderate (HC) Take 1 Tablet (50 mg) by mouth once daily in the morning. 90 Tablet 3 5 Active Active Problems Problem Noted Date Diagnosed [...] Sciatica of right side 09/17/2012 Overview (11/24/2017): [facility]: 09/12- given steroid dose pac with [...] Encounters Date Type Department Care Team Description 07/24/2025 Nurse Triage [facility] [address] [place] [address] Lacie Hilton PA Chest Injury; Infection on Antibiotic Follow-Up from Last 3 Months Immunizations Immunization Administration Dates Next Due COVID-19 vaccine (Moderna 10 0mcg/0.5mL) PF MDV 07/11/2021,12/12/2020,2020 Hepatitis A (Adult) 03/14/2013,08/17/2012 Hepatitis [...] lung COPD Mother Heart Disease Paternal Grandfather GA 80' s Cervical cancer Sister 1 michael [...] Answer Date Recorded PHQ-2 TOTAL SCORE 0 01/18/2025 [facility] [place] of Occupat ional Health - Occupational Stress [...] on file Legal Sex Female 6:15 AM DETECTIVE CHIEF Gender Identity Not on file Sexual Orientation Not on file 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 Not on file Not on file Not on file Obstetrics History Para Term AB IAB SAB Ectopic Multiple Livin g Live Births 2 2 2 Date Outcome GA Total Labor Labor/2nd/3rd Weight Sex Type Anes PTL Sherine A1 A5 Name Clin Para Para Last Filed Vital Signs Vital Sign Reading Time Taken Comments Blood Pressure 116/74 01/18/2025 9:32 AM CDT Pulse 51 01/18/2025 9:32 AM CDT Temperature 36.8 C (98.3 F) 05/31/2021 8:22 AM CDT Respiratory Rate 16 07/06/2024 3:06 PM DETECTIVE CHIEF Oxygen Saturation 97% 01/18/2025 9:32 AM CDT Inhaled Oxygen Concentration - - Weight 92.1 kg (203 lb) 01/18/2025 9:32 AM CDT Height 165.1 cm (5' 5) 10/19/2024 9:18 AM DETECTIVE CHIEF Body Mass Index 33.78 10/19/2024 9:18 AM DETECTIVE CHIEF Plan of Treatment Scheduled Procedures Name Priority Associated Diagnoses Date/Ti me SURGICAL PROCEDURE (TYPE PROCEDURE DESCRIPTION BELOW) Encounter for screening colonoscopy Health Maintenance Due Date Last Done Comments RSV vaccine for adults or (1 - Risk 50-74 years 1-dose series) 2008 Influenza Vaccine (#1) 2025 , 08/02/2024, 05/14/2023, Additional history exists BMI (ht and wt on same day) for age 18+ 10/19/2025 10/19/2024, 02/24/2024, 10/16/2023, Additional history exists Medicare Wellness for age 65+ 10/20/2025 10/19/2024 Depression screening for age 12+ 01/18/2026 01/18/2025, 10/19/2024, 10/09/2024, Additional history exists Fecal testing sDNA-FIT ([place] guard) for age 45-75 10/29/2026 10/30/2023 Mammogram for age 45-75 01/18/2027 01/19/20, 02/14/2021, 11/24/2017, Additional history exists Lipids for age 45-75 01/18/2030 01/18/2025, 10/19/2024, 10/16/2023, Additional history exists Tetanus booster 07/16/2030 07/16/2020, 12/30, 01/21/2010, Additional history exists Hepatitis B series for 19+ Completed 03/14, 09/24/2012, 08/17/2012 Hepatitis C screening for ag e 18-79 Completed 11/07/2013 Zoster (shingles) series for age 50+ Completed 09/21/2021, 03/11/2021 Pneumococcal series for age 50+ Completed DEXA/DXA scan for age 65+ Completed 01/18/2025 Medical Devices Implanted Type Area Track Oiler Device Identifier Shelf Expiration Date Model / Serial / Lot Cmnt Bone 40g Simplex P Non Atb Mv - [id number] Implanted:Qty: 1 on 06/16/2019 by Won Winslow MD at [facility] Right: Shoulder [employer] 05/30/2021 [id number]# / / [id number] Glenoid Szmed 35mm Aeq Perform - [id number] Implanted:Qty: 1 on 06/16/2019 by Won Winslow MD at [facility] Right: Shoulder [employer] 04/09/2023 [id number]# / [id number] / Head Hum [id number] Aequalis Hi Off - [id number] Implanted:Qty: 1 on 06/16/2019 by Won Winslow MD at [facility] Right: Shoulder [employer] 10/07/2023 [id number]# / [id number] / Stem Hum Sz4b Ascend Flex Std - [id number] Implanted:Qty: 1 on 06/16/2019 by Won Winslow MD at [facility] Right: Shoulder [employer] 04/20/2024 [id number] / [id number] / Procedures Procedure Name Priority Date/Time Associated Diagnosis Comments LIPID PANEL W REFLEX MEASURED LDL Routine 01/18/2025 9:15 AM CDT Pure hypercholesterolemia XR DXA BONE DENSITY 2 SITES AXIAL Routine 01/18/2025 9:13 AM CDT Menopause XR MAMMO AYAAN BILAT SCREEN Routine 01/18/2025 8:50 AM CDT Visit for screening mammogram SDNA-FIT EXTERNAL (COLOGUARD) Routine 10/30/2023 9:30 AM DETECTIVE CHIEF Screening for colon cancer ANTI HCV Routine 11/07/2013 2:41 PM CDT Need for hepatitis C screening test from Last 3 Months or Most Recently Relevant to Health Maintenance Results * (ABNORMAL) LIPID PANEL W REFLEX MEASURED LDL (01/18/2025 9:15 AM CDT) CHOLESTEROL, TOTAL 204(H) <200 mg/dL [facility] HDL CHOLESTEROL 52 > OR = 50 mg/dL [facility] TRIGLYCERIDES 92 <150 mg/dL [facility] LDL-CHOLESTEROL 132(H) mg/dL (calc) [facility] Comment: Reference range: <100 Desirable range <100 mg/dL for primary prevention; <70 mg/dL for patients with CHD or diabetic patients with > or = 2 CHD risk factors. LDL-C is now calculated using the Herson calculation, which is a validated novel method providing better accuracy than the Friedewald equation in the estimation of LDL-C. Kevan HOLT et al. TATA. 2013;310(19): 5429-0865 (http://education.[employer]/faq/IDQ873) CHOL/HDLC RATIO 3.9 <5.0 (calc) [facility] NON HDL CHOLESTEROL 152(H) <130 mg/dL (calc) [facility] Comment: For patients with diabetes plus 1 major ASCVD risk factor, treating to a non-HDL-C goal of <100 mg/dL (LDL-C of <70 mg/dL) is considered a therapeutic option. Blood BLOOD SPECIMEN / Unknown 01/18/2025 9:15 AM CDT 01/18/2025 9:17 AM CDT Narrative Social Strategy 1 DIAGNOSTICS - 01/19/2025 5:19 AM CDT FASTING:NO FASTING: NO Lacie BANUELOS CHEMISTRY Final Res ult ManagerComplete [facility] [address] [place] [address], [facility] [address] [place] [address] * (ABNORMAL) XR DXA BONE DENSITY 2 SITES AXIAL [44045.1] (01/18/2025 9:13 AM CDT) Anatomical Region Laterality Modality Spine, HIPS, HIPL, HIPR Other Impressions 01/27/2025 4:41 PM CDT Osteopenia. RECOMMENDATIONS: The National Osteoporosis Foundation recommends pharmacologic treatment for patients with T-scores of -2.5 or less, patients with prior history of fragility fractures, or patients with 10-year probability of greater than 3% at hips or greater than 20% of suffering major osteoporotic fractures. Recommend continued optimization of calcium and vitamin D intake through dietary means and/or supplementation and regular exercise. Repeat scan recommended in 3-5 years. Nohelia Moncada PA-C [facility] 01/27/2025 Narrative 01/27/2025 4:41 PM CDT For Patients: Results are automatically released to your [facility] ([email or web address]) account once available, in compliance with federal regulations. This means that you may see your results before your provider has had a chance to review them. Please allow 2-3 business days for your provider to comment on the results. XR DXA Bone Mineral Density (BMD) EXAM LOCATION: [facility] [address] [facility] [address] PATIENT NAME: Esmer Tobar DATE OF : 1960 EXAM DATE: 01/18/2025 REQUESTING PROVIDER: Lacie Hilton PA GENDER AT : female HEIGHT: 5' 5 (10/19/2024) WEIGHT: 202 lb (01/09/2025) MENOPAUSAL STATUS: Postmenopausal RACE/ETHNICITY: White RISK FACTORS: Height Loss (2 inches or more) and White Race CURRENT MEDICATION FOR BONE LOSS: NONE INDICATION: Initial scan for screening and Post-Menopause COMPARISON DATE(S): None DXA scans are compared to prior studies for a patient only when the two (or more) studies were performed on the same scanner. It is not possible to compare data generated on one scanner to data from another because there are not standards in DXA equipment. This applies even if the two scanners are made by the same edge worker. PROCEDURE: Dual-energy x-ray absorptiometry performed with routine technique. Reporting is completed in the form of a T-score. The T-score represents the standard deviation from peak bone mass based on young healthy adult. A Z-score is used for diagnosis in premenopausal women, and for men under the age of 50. FINDINGS: RESULT LUMBAR SPINE L1 - L4 BMD: 1.007 g/cm2 T-Score: - 1.5 Z-Score: - 0.8 Change from prior: None RESULTS FEMUR Left femoral neck BMD: 0.850 g/cm2 T-Score: - 1.4 Z-Score: - 0.4 Change from prior: None Right femoral neck BMD: 0.795 g/cm2 T-Score: - 1.8 Z-Score: - 0.8 Change from prior: None Left hip BMD: 0.927 g/cm2 T-Score: - 0.6 Z-Score: + 0.0 Change from prior: None Right hip BMD: 0.883 g/cm2 T-Score: - 1.0 Z-Score: - 0.4 Change from prior: None WHO criteria: Normal: T-score at or above -1 SD Osteopenia: T-score between -1.1 and -2.4 SD Osteoporosis: T-score at or below -2.5 SD FRAX RISK CALCULATION (USED FOR OSTEOPENIA ONLY): 10-year probability of major osteoporotic fracture: 5.5%. 10-year probability of hip fracture: 1.2%. Lacie BANUELOS DEXA Final Res ult * XR MAMMO AYAAN BILAT SCREEN (01/18/2025 8:50 AM CDT) Anatomical Region Laterality Modality BREASTS, Breast Left, Breast Right Bilateral Mammography Impressions 01/18/2025 2:18 PM CDT There is no radiographic evidence for malignancy. Recommend annual mammograms. MAMMOGRAM ASSESSMENT: ACR 1 Negative PATIENTS: You will also receive a letter with your examination results in an easy to read format. If you have questions about your results, please contact your referring provider. Narrative 01/18/2025 2:18 PM CDT For Patients: As a result of the Century Cures Act, medical imaging exams and procedure reports are released immediately into your electronic medical record. You may view this report before your referring provider. If you have questions, please contact your health care provider. XR MAMMO AYAAN BILAT SCREEN [[id number]] CLINICAL HISTORY: This is an asymptomatic 64 y.o. patient. INDICATION FOR EXAM: Mammogram Screening. TECHNIQUE: CC and MLO views were obtained. This study was evaluated with the assistance of Computer-Aided Detection. Breast Tomosynthesis was used in interpretation. COMPARISON FILM: Yes 02/14/21 [employer] [facility] 11/24/17 [employer] FINDINGS: There are scattered areas of fibroglandular density. There are no dominant masses, suspicious micro calcifications or areas of architectural distortion. Lacie BANUELOS MAMMO Final Res ult * SDNA-FIT EXTERNAL (COLOGUARD) (10/30/2023 9:30 AM DETECTIVE CHIEF) NONINV COLON CA DNA+OCC BLD SCRN STL-IMP Negative Negative 11/09/2023 5:11 PM CDT [employer] (CLIA #:[id number]) Comment: NEGATIVE TEST RESULT. A negative Cologuard [...] screened with both Cologuard and colonoscopy. (Rita Diaz et al, N Engl J Med 2014;370(14):4071-1427) The normal value (reference range) for this assay is negative. COLOGUARD RE-SCREENING RECOMMENDATION: Periodic colorectal cancer screening is an important part of preventive healthcare for asymptomatic individuals at average risk for colorectal cancer. Following a negative Cologuard result, the [place] Cancer Society and U.S. Multi-Society Task Force screening guidelines recommend a Cologuard re-screening interval of 3 years. References: [place] Cancer Society Guideline for Colorectal Cancer Screening: https://www.cancer.org/cancer/pfhmf-iyxiji-nhsbct/areskxnkd-thtanvpge-mfekero/ac s-rec ommendations.html.; Patrick DK, Bernadette VIVAS, Pk SamK, Colorectal Cancer Screening: Recommendations for Physicians and Patients from the U.S. Multi-Society Task Force on Colorectal Cancer Screening , Am J Gastroenterology 2017; 112:2452-6551. TEST DESCRIPTION: Composite algorithmic analysis of stool [...] screened with both Cologuard and colonoscopy. (Rita Diaz et al, N Engl J Med 2014;370(14):2118-8325.) Cologuard may produce a false negative or false positive result (no colorectal cancer or precancerous polyp present at colonoscopy follow up). A negative Cologuard test result does not guarantee the absence of CRC or advanced adenoma (pre-cancer). The current Cologuard screening interval is every 3 years. ([place] Cancer Society and U.S. Multi-Society Task Force). Cologuard performance data in a 10,000 patient pivotal study using colonoscopy as the reference method can be accessed at the following location: www.[employer]/results. Additional description of the Cologuard test process, warnings and precautions can be found at www.[employer]. Stool specimen (specimen) (Rectum) 10/30/2023 9:30 AM DETECTIVE CHIEF 11/02/2023 9:53 AM DETECTIVE CHIEF us Lacie BANUELOS URINE Final Res ult [employer] (CLIA #:[id number]) [address] [place] [address], * ANTI HCV [82340.2] (11/07/2013 2:41 PM CDT) ANTI HCV Non-reacti ve [facility] Blood specimen (specimen) BLOOD SPECIMEN / Unknown 11/07/2013 2:41 PM CDT 11/07/2013 2:33 PM CDT us Jaimie Reyes MD SEND OUTS Final Resu lt [facility] INTERNAL ZIP [address] [place] [address] from Last 3 Months or Most Recently Relevant to Health Maintenance Insurance [facility] MEDICARE PART A HB ONLY [facility] Advance Directives * Full Code (Latest Code Status on File) Date Activated Date Inactivated Comments 06/16/2019 5:56 AM 06/17/2019 2:40 PM * Full Code Date Activated Date Inactivated Comments 08/19/2016 9:41 PM 08/20/2016 5:41 PM Care Teams School Photographs Detailer Relationship Specialty Start Date End Date Lacie Hilton PA [address] [place] [address] PCP - General Physician Cheese Specialist 05/19/[address] [place] [address] Registered Dietitian Technical Translator 07/03/23 Jaimie Dent PA [address] [place] [address] Physician Cheese Specialist 07/03/23 Bambi Samson Mental Health Provider 07/03/23
--- NOTE | 2025-07-24 08:04 | CRLHL7_ITS ---
For Patients: As a result of the Century Cures Act, medical imaging exams and procedure reports are released immediately into your electronic medical record. You may view this report before your referring provider. If you have questions, please contact your health care provider. Indication: Cough and left-sided rib pain Technique: Chest 2 views Comparison: Chest x-ray 06/16/2024 Findings/Impression: Cardiovascular and mediastinum: Heart size and vasculature are normal in caliber and appearance. Mediastinum is within normal limits. Lungs and pleural spaces: Lungs are clear. No sign of infiltrate or mass. No sign of pleural effusion. No pneumothorax. Bones and soft tissues: Status post right shoulder replacement. Dictated by Mak Lozano MD @ 07/24/2025 8:47:41 AM (Electronically Signed)
--- NOTE | 2025-07-24 08:22 | ED_ITS ---
HPI - General Adult General Time Seen by Provider: 08:22 Date Seen: 07/24/25 Chief complaint: Cough Stated complaint: cough Time Seen by Provider: 07/24/25 08:22 Source: patient and RN notes reviewed Mode of arrival: ambulatory Limitations: no limitations History of Present Illness HPI narrative: This 64-year-old female is presenting to the ER with coughing and cold symptoms since June 12. She was seen in Urgent Care prior and given antibiotics which reportedly did not help. This was at an outside urgent care and I do not have those records. She states she was cleaning her tub yesterday and leaning on the tub, heard a crack in her rib area and now has pain. She is wondering if she potentially cracked rib. Pain in the rib areas worse with coughing and deep breathing. She notes that this is the left side of her chest wall. 8:48 a.m.: Patient is seen back in the department after her chest x-ray imaging. She is on doxycycline day 6 and is not improving at all. She is not a smoker, does not carry history of asthma, has not required any inhalers in the past. Her parents were very heavy smokers and she was subjected to smoke secondarily as a child. Her brother does have asthma. She has not noted any fevers. She is coughing to the point of post-tussive emesis occasionally, cough is sometimes dry, sometimes productive. She is getting a lot of postnasal drainage. She has had increased headaches with this illness. She is not necessarily noting dental or facial pain. She is not feeling any internal chest pain, of the chest wall pain is on the anterior chest wall where she was leaning on it, is below the breast. There is no abdominal pain. Review of the urgent care note shows that she was seen on July 19, she was thought to have probable sinusitis by the provider and prescribed doxycycline and prednisone 40 mg daily for 5 days. Patient reports no improvement with her symptoms. Related Data Home Medications ?Medication ?Instructions ?Recorded ?Confirmed hydrochlorothiazide 25 mg tablet 25 mg PO DAILY 04/04/25 sertraline 100 mg tablet 100 mg PO QAM 06/13/2404/04 pramipexole 0.25 mg tablet mg PO 06/16/24 04/04/25 empagliflozin 10 mg tablet 10 mg PO DAILY 04/04/2501/22 (Jardiance) Previous Rx's ?Medication ?Instructions ?Recorded doxycycline hyclate 100 mg tablet 100 mg PO BID 7 days #14 tabs 07/19/25 benzonatate 200 mg capsule 200 mg PO TID PRN cough #21 caps 07/24/25 potassium chloride 10 mEq 10 meq PO DAILY #14 caps capsule,extended release Allergies Allergy/AdvReac Type Severity Reaction Status Date / Time lisinopril Allergy Mild Verified 07/24/25 07:57 Review of Systems Status of ROS: Reports: 6 or more systems reviewed and unremarkable except as noted in History and below [facility] Medical History Plantar fascial fibromatosis ?M72.2 - Plantar fascial fibromatosis (ICD-10) Obesity (BMI 30-39.9) ?E66.9 - Obesity, unspecified (ICD-10) Irritable bowel syndrome (IBS) ?K58.9 - Irritable bowel syndrome, unspecified (ICD-10) H/O sciatica ?Z86.69 - Personal history of other diseases of the nervous system and sense organs (ICD-10) Arthritis ?M19.90 - Unspecified osteoarthritis, unspecified site (ICD-10) Acid reflux ?K21.9 - Gastro-esophageal reflux disease without esophagitis (ICD-10) Nonallopathic lesion of thoracic region, not elsewhere classified ?M99.9 - Biomechanical lesion, unspecified (ICD-10) Spasm of muscle ?M62.838 - Other muscle spasm (ICD-10) Headache ?R51.9 - Headache, unspecified (ICD-10) Nonallopathic lesion of cervical region, not elsewhere classified ?M99.81 - Other biomechanical lesions of cervical region (ICD-10) Disorders of magnesium metabolism ?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 - Disorders of magnesium metabolism, unspecified (ICD-10) Major depressive disorder, single episode, unspecified ?F32.9 - Major depressive disorder, single episode, unspecified (ICD-10) Bronchitis ?J40 - Bronchitis, not specified as acute or chronic (ICD-10) Plantar fasciitis ?M72.2 - Plantar fascial fibromatosis (ICD-10) Iron deficiency ?E61.1 - Iron deficiency (ICD-10) Left-sided chest pain ?R07.9 - Chest pain, unspecified (ICD-10) Anemia ?D64.9 - Anemia, unspecified (ICD-10) COVID-19 ?U07.1 - COVID-19 (ICD-10) Vaginal bleeding ?N93.9 - Abnormal uterine and vaginal bleeding, unspecified (ICD-10) Pulmonary nodule ?R91.1 - Solitary pulmonary nodule (ICD-10) Restless legs syndrome (RLS) ?G25.81 - Restless legs syndrome (ICD-10) Primary osteoarthritis of right shoulder ?M19.011 - Primary osteoarthritis, right shoulder (ICD-10) Chronic left shoulder pain ?M25.512 - Pain in left shoulder (ICD-10) ?G89.29 - Other chronic pain (ICD-10) DDD (degenerative disc disease), lumbar ?M51.369 - Other intervertebral disc degeneration, lumbar region without mention of lumbar back pain or lower extremity pain (ICD-10) Sciatica of right side ?M54.31 - Sciatica, right side (ICD-10) Type 2 diabetes mellitus without complication, without long-term current use of insulin ?E11.9 - Type 2 diabetes mellitus without complications (ICD-10) Vitamin D deficiency ?E55.9 - Vitamin D deficiency, unspecified (ICD-10) Hyperlipidemia with target LDL less than 130 ?E78.5 - Hyperlipidemia, unspecified (ICD-10) Prediabetes ?R73.03 - Prediabetes (ICD-10) Heart murmur ?R01.1 - Cardiac murmur, unspecified (ICD-10) Essential hypertension, benign ?I10 - Essential (primary) hypertension (ICD-10) Surgical History History of endometrial biopsy ?Z92.89 - Personal history of other medical treatment (ICD-10) History of hand surgery ?Z98.890 - Other specified postprocedural states (ICD-10) Status post trigger finger release ?Z98.890 - Other specified postprocedural states (ICD-10) History of tonsillectomy ?Z90.89 - Acquired absence of other organs (ICD-10) History of right shoulder replacement ?Z96.611 - Presence of right artificial shoulder joint (ICD-10) H/O toe surgery ?Z98.890 - Other specified postprocedural states (ICD-10) Social History Smoking Status: Never smoker Do you use any of these nicotine containing products: None Second hand tobacco smoke exposure: No How often do you have a drink containing alcohol: monthly or less AUDIT-C Alcohol total score: 1 Non-prescribed substance use: denies use Exam Const: Vital Signs, click to edit/add: Vital Signs - 24 hr 07/24/25 07:51 07/24/25 08:10 07/24/25 08:15 Temperature 96.4 F L Pulse Rate 54 L 55 L Pulse Rate [Pulse Oximeter] 61 Respiratory Rate 18 18 Blood Pressure Blood Pressure [Ri ght Upper Arm] 153/83 H Pulse Oximetry 96 96 96 Oxygen Delivery Me thod Room Air 07/24/25 08:38 07/24/25 08:45 07/24/25 09:00 Temperature Pulse Rate 52 L 52 L 55 L Pulse Rate [Pulse Oximeter] Respiratory Rate Blood Pressure Blood Pressure [Ri ght Upper Arm] Pulse Oximetry 96 96 96 Oxygen Delivery Me thod 07/24/25 09:06 Temperature 98.2 F Pulse Rate 53 L Pulse Rate [Pulse Oximeter] Respiratory Rate 16 Blood Pressure 149/65 H Blood Pressure [Ri ght Upper Arm] Pulse Oximetry 97 Oxygen Delivery Me thod This 64-year-old female is seen exam room 6, she is alert, interactive, no apparent distress but has a recurrent coarse cough during the interaction. Pupils equal round reactive, sclera clear, extraocular muscles intact, anterior nares normal. No tenderness when I palpate the sinuses, TMs canals normal. Oropharynx with normal mucosa, no exudates or erythema. Neck supple, no adenopathy or masses. She is able to sit up on her own, lungs are clear, good air entry, no wheezing or crackles, no tachypnea, no accessory muscle use, no prolonged expiratory phase. CV regular rate and rhythm, no murmur, normal S1- S2, no S3-S4. She is tender along her anterior left lower chest wall without any crepitus, no visual ecchymosis. I do not feel any step-off. Abdomen is soft, nontender in this left upper quadrant. Documenting provider has reviewed patient's vital signs: yes Course Course ED Course: Nursing staff ordered two view chest x-ray, went over into x-ray department as patient was already over there. She is having left sided rib and chest wall pain, did add on left rib views. I will see her back into the department after the imaging is done. Have reviewed with the patient that on my preliminary review, I do not see pneumonia or rib fracture. This clinically does not mean that she could not have a rib fracture, sometimes they cannot be seen on imaging until they are healed with callus. We discussed using splinting technique with coughing, sneezing or moving. As far as her cough, do wonder she is getting postnasal drainage and wondering if this is actually a sinusitis that is unresponsive to current treatment. At this point, do feel sinus imaging is necessary in further evaluation of her symptoms. Will do a noncontrast sinus CT looking for sinusitis as a cause of her cough. She is already been reportedly given prednisone, will need to confirm with her she took this or not. May need to consider antibiotic change as doxycycline has not been improving symptoms. It is possible that this is post viral illness, need to consider other etiologies and may need to test and treat for pertussis potentially if there is no sinusitis. At this time, patient is hemodynamically stable and not hypoxic. Chest x-ray does not apparently show us pneumonia but will await Radiology over- read. Will also look at blood work and helping us evaluate this patient further. Reevaluation(s) Time of Reevaluation #1: 09:36 Reevaluation #1: Have reviewed no rib fracture seen on her chest x-ray imaging, no pneumonia. We are waiting her sinus imaging and will review all labs and sinus imaging when back. She is staying hemodynamically stable, no hypoxia. Time of Reevaluation #2: 10:18 Reevaluation #2: Have reviewed her normal sinus CT, no evidence of any acute or chronic sinusitis. Thus, this leaves us with a post inflammatory cough from infection. It is possible that she had pertusses early on, we discussed that after 21 days antibiotics are no longer effective, it is the damage that is left behind causing the cough. On her labs and imaging, there is no indication for antibiotics. We discussed upan-nyt-bwltuzg cough and cold medicines, lozenges, humidifier. I will write for some Tessalon Perles. We also did review the hypokalemia, she does not take potassium supplements but is on hydrochlorothiazide. I will write for some potassium, she will need to follow up in clinic to discuss ongoing potassium replacement with her diuretic use. Will give her handout on food with potassium in them. Of note, she did complete the prednisone and it did not help at all. This is reviewed with her that this very likely represents just postinflammatory cough from a respiratory infection whether be viral or post pertusses. She is far enough out that there is no need to test for pertussis nor treat for it. Vital Signs Vital signs: Initial Vital Signs Temperature 96.4 F L 07/24/25 07:51 Temperature Source Temporal Artery Scan 07/24/25 07:51 Pulse Rate 61 07/24/25 07:51 Pulse Rhythm Regular 07/24/25 07:51 Respiratory Rate 18 07/24/25 07:51 Blood Pressure 153/83 H 07/24/25 07:51 Blood Pressure Mean 106 H 07/24/25 07:51 Blood Pressure Position Sitting 07/24/25 07:51 Pulse Oximetry 96 07/24/25 07:51 Oxygen Delivery Method Room Air 07/24/25 07:51 Vital Signs Temperature 96.4 F L 07/24/25 07:51 Pulse Rate 61 07/24/25 07:51 Respiratory Rate 18 07/24/25 07:51 Blood Pressure 153/83 H 07/24/25 07:51 Pulse Oximetry 96 07/24/25 07:51 Oxygen Delivery Method Room Air 07/24/25 07:51 Temperature 98.2 F 07/24/25 09:06 Pulse Rate 53 L 07/24/25 09:06 Respiratory Rate 16 07/24/25 09:06 Blood Pressure 149/65 H 07/24/25 09:06 Pulse Oximetry 97 07/24/25 09:06 Oxygen Delivery Method Room Air 07/24/25 07:51 Medical Decision Making Lab Data Lab results reviewed: Yes I reviewed the patient's lab results Labs: Lab Results 07/24/25 Range/Units 09:14 WBC 8.42 (4.50-11.00) K/uL RBC 4.84 (4.00-5.20) m/uL Hgb 12.2 (12.0-16.0) gm/dL Hct 40.0 (33.0-51.0) % MCV 83 (80-100) fL MCH 25 L (26-34) pg MCHC 31 L (32-36) gm/dL RDW Coeff of Wan 14.9 (11.5-15.5) % Plt Count 207 (140-440) K/uL Neut % (Auto) 67.2 (42.0-72.0) % Lymph % (Auto) 24.1 (20-44) % [place] % (Auto) 6.9 (0.0-11.0) % Eos % (Auto) 1.0 (0.0-7.0) % Baso % (Auto) 0.4 (0.0-3.0) % Neut # (Auto) 5.67 (1.7-7.0) K/uL Lymph # (Auto) 2.03 (0.90-2.90) K/uL [place] # (Auto) 0.60 (0.00-0.90) K/UL Eos # (Auto) 0.08 (0.00-0.50) K/uL Baso # (Auto) 0.03 (0.00-0.30) K/uL Abs Immat Gran (auto) 0.03 (0.00-0.30) K/uL Imm/Tot Granulo (auto) 0.4 % Sodium 140 (135-149) mmol/L Potassium 3.0 L (3.6-5.1) mmol/L Chloride 100 (96-114) mmol/L Carbon Dioxide 32 (20-32) mmol/L Anion Gap 8 (7-15) mEq/L BUN 15 (7-30) mg/dL Creatinine 0.5 (0.5-1.5) mg/dL Estimated GFR 103 ml/min Glucose 127 H (60-115) mg/dL Calcium 8.8 (8.4-10.6) mg/dL C-Reactive Protein 0.9 (0.5-1.0) mg/dL Imaging Data Chest x-ray: Attestation: I have reviewed the pertinent imaging results. Radiologist's impression: Patient: CONI PARRA Facility:?[facility] Patient ID:?[id number] Site Patient ID:?[id number]. Site :?1960 Study:?XRay-Chest 2v-07/24/2025 8:45:47 AM Ordering Physician:?Feli Donovan Final Report: Indication: Cough and left-sided rib pain Technique: Chest 2 views Comparison: Chest x-ray 06/16/2024 Findings/Impression: Cardiovascular and mediastinum: Heart size and vasculature are normal in caliber and appearance. Mediastinum is within normal limits. Lungs and pleural spaces: Lungs are clear. No sign of infiltrate or mass. No s ign of pleural effusion. No pneumothorax. Bones and soft tissues: Status post right shoulder replacement. Dictated by Mak Lozano MD @ 07/24/2025 8:47:41 AM (Electronic Signature) Patient: CONI PARRA Facility:?[facility] Patient ID:?[id number] Site Patient ID:?[id number] Site :?1960 Study:?XRay-Chest Left RIBS-07/24/2025 8:49:11 AM Ordering Physician:?Feli Donovan Final Report: INDICATION: Cough and left-sided rib pain TECHNIQUE: Left ribs 3 views. COMPARISON: None FINDINGS: Cardiovascular and mediastinum: No cardiomegaly. Lungs and pleural spaces: Lungs are clear. No sign of infiltrate or mass. No sign of pleural effusion. No pneumothorax. Bones and soft tissues: Detailed oblique images of the left ribs demonstrate no fractures or bone lesions. Glenohumeral joint space narrowing with marginal osteophytes. IMPRESSION: No evidence of left rib fracture or pneumothorax. Moderate left glenohumeral osteoarthritis. Dictated by Mak Lozano MD @ 07/24/2025 9:02:14 AM (Electronic Signature) sinus CT: Attestation: I have reviewed the pertinent imaging results. Radiologist's impression: Patient: CONI PARRA Facility:?[facility] Patient ID:?[id number] Site Patient ID:?[id number]. Site :?1960 Study:?CT-Sinus W/O-07/24/2025 9:32:37 AM Ordering Physician:Kenney Donovan Final Report: Indication: Sinus drainage, ill for over a month Technique: Volumetric multidetector CT images of the paranasal sinuses were obtained witho ut the administration of IV contrast. Comparison: None available Findings: The partially visualized brain parenchyma is normal in attenuation with no evidence of midline shift or fluid collection. The frontal sinus and frontal recesses are well aerated. There is minimal chronic mucosal thickening within the ethmoid air cells. The sphenoid sinus is well aerated. The maxillary sinuses are well aerated without significant mucoperiosteal thickening. There is mild opacification of the right ostiomeatal unit. There is mild leftward nasal septal deviation. There is no evidence of acute osseous abnormality. Impression: Mild chronic mucoperiosteal thickening within the predominantly ethmoid air cells with minimal effacement of the right ostiomeatal unit. Otherwise no evidence of significant acute or chronic sinus disease. Please note that all CT scans at this facility use dose modulation, iterative reconstruction, and/or weight-based dosing when appropriate to reduce radiation dose to as low as reasonably achievable. Dictated by David Wallace MD @ 07/24/2025 9:39:05 AM (Electronic Signature) Discharge Plan Discharge Clinical Impression: Persistent cough for 3 weeks or longer, Hypokalemia, Acute chest wall pain Patient Disposition: Home, Self-Care Condition: Stable Instructions: Potassium Content of Foods List (ED), Hypokalemia (ED), Acute Cough (ED), Chest Wall Pain (ED) Additional Instructions: Try a humidification, steaming in the shower. Can use kezc-vci-rteescx cough and cold medicines, lozenges. Did write for Vida Flores. You also have low potassium due to your diuretic use. Will give you some potassium supplementation. You do need to schedule follow-up in clinic within the next 1- 2 weeks for recheck of your symptoms including the low potassium. May need to go on some potassium supplementation, your provider will need to recheck your potassium and make that decision. Your chest wall pain certainly could be a nondisplaced rib fracture. Can use yffl-wgs-btgnodw medicines, splinting technique as we reviewed. If you have acute worsening in your chest wall symptoms associated with increased coughing, fever development, please seek re- evaluation. Activity Level: Activity as Tolerated Prescriptions: New benzonatate 200 mg capsule 200 mg PO TID PRN (Reason: cough) Qty: 21 0RF potassium chloride 10 mEq capsule, extended release 10 meq PO DAILY Qty: 14 0RF No Action pramipexole 0.25 mg tablet PO Jardiance 10 mg tablet 10 mg PO DAILY doxycycline hyclate 100 mg tablet 100 mg PO BID 7 Days Qty: 14 0RF sertraline 100 mg tablet 100 mg PO QAM hydrochlorothiazide 25 mg tablet 25 mg PO DAILY Follow Up/Referrals: Lacie Hilton PA-C [Primary Care Provider, Family Practice] Stand Alone Forms: [facility] Info Instructions
--- NOTE | 2025-07-24 08:26 | CRLHL7_ITS ---
For Patients: As a result of the Century Cures Act, medical imaging exams and procedure reports are released immediately into your electronic medical record. You may view this report before your referring provider. If you have questions, please contact your health care provider. INDICATION: Cough and left-sided rib pain TECHNIQUE: Left ribs 3 views. COMPARISON: None FINDINGS: Cardiovascular and mediastinum: No cardiomegaly. Lungs and pleural spaces: Lungs are clear. No sign of infiltrate or mass. No sign of pleural effusion. No pneumothorax. Bones and soft tissues: Detailed oblique images of the left ribs demonstrate no fractures or bone lesions. Glenohumeral joint space narrowing with marginal osteophytes. IMPRESSION: No evidence of left rib fracture or pneumothorax. Moderate left glenohumeral osteoarthritis. Dictated by Mak Lozano MD @ 07/24/2025 9:02:14 AM (Electronically Signed)
--- NOTE | 2025-07-24 09:04 | CRLHL7_ITS ---
For Patients: As a result of the Century Cures Act, medical imaging exams and procedure reports are released immediately into your electronic medical record. You may view this report before your referring provider. If you have questions, please contact your health care provider. Indication: Sinus drainage, ill for over a month Technique: Volumetric multidetector CT images of the paranasal sinuses were obtained without the administration of IV contrast. Comparison: None available Findings: The partially visualized brain parenchyma is normal in attenuation with no evidence of midline shift or fluid collection. The frontal sinus and frontal recesses are well aerated. There is minimal chronic mucosal thickening within the ethmoid air cells. The sphenoid sinus is well aerated. The maxillary sinuses are well aerated without significant mucoperiosteal thickening. There is mild opacification of the right ostiomeatal unit. There is mild leftward nasal septal deviation. There is no evidence of acute osseous abnormality. Impression: Mild chronic mucoperiosteal thickening within the predominantly ethmoid air cells with minimal effacement of the right ostiomeatal unit. Otherwise no evidence of significant acute or chronic sinus disease. Please note that all CT scans at this facility use dose modulation, iterative reconstruction, and/or weight-based dosing when appropriate to reduce radiation dose to as low as reasonably achievable. Dictated by David Wallace MD @ 07/24/2025 9:39:05 AM (Electronically Signed)
[2025-07-24 09:25] LABS: Hematocrit* 40.0 % (33.0-51.0); Hemoglobin* 12.2 gm/dL (12.0-16.0); Immature Granulocytes Abs Auto 0.03 K/uL (0.00-0.30); Immature Granulocytes Pct Auto 0.4 %; Lymphocytes Absolute Auto 2.03 K/uL (0.90-2.90); Mean Corpuscular HGB Conc 31 gm/dL (32-36); Mean Corpuscular Hemoglobin 25 pg (26-34); Mean Corpuscular Volume 83 fL (80-100); RDW Coefficient of Variation % 14.9 % (11.5-15.5); Red Blood Count* 4.84 m/uL (4.00-5.20); White Blood Count* 8.42 K/uL (4.50-11.00)
[2025-07-24 09:33] LABS: Slide Review Reflex No
[2025-07-24 09:38] LABS: Chloride* 100 mmol/L (96-114); Potassium* 3.0 mmol/L (3.6-5.1); Sodium* 140 mmol/L (135-149)
[2025-07-24 09:42] LABS: Anion Gap 8 mEq/L (7-15); Blood Urea Nitrogen* 15 mg/dL (7-30); Calcium* 8.8 mg/dL (8.4-10.6); Carbon Dioxide* 32 mmol/L (20-32); Creatinine* 0.5 mg/dL (0.5-1.5); Estimated Glomerular Filt Rate 103 ml/min; Glucose* 127 mg/dL (60-115)
== END 2025-07-24 10:41 | disposition home or self-care (01) ==
PROVIDERS: Emergency Provider Family Medicine; PCP Student in an Organized Health Care Education/Training Program
DX: R05.1 Acute cough (principal); E87.6 Hypokalemia; R07.89 Other chest pain
CPT/HCPCS: 36415; 70486; 71046; 71100; 80048; 85025; 86140; 99284; 99285